=== PATIENT | male | born 1995 | race Caucasian/White ===

== ENCOUNTER → 2022-08-06 | Outpatient (CLI) | payer OTHER, SELFPAY ==
--- NOTE | 2022-08-06 13:36 | RAD_ITS ---
EXAM: XR LEFT TIBIA AND FIBULA, 2 VIEWS CLINICAL INDICATION: Trauma TECHNIQUE: Frontal and lateral views of the left tibia and fibula. This report was created using [employer] report generation technology. COMPARISON: None. FINDINGS: BONES/JOINTS: No acute abnormality. SOFT TISSUES: Normal. No soft tissue swelling or gas. No radiopaque foreign body. RAD/Tibia & Fibula 2 Views IMPRESSION: Negative left tibia and fibula x-rays. Electronically Signed: James Valentin MD at 16:40 EST ,
--- NOTE | 2022-08-06 13:37 | RAD_ITS ---
EXAM: XR BILATERAL RIBS AND AP CHEST, 3 OR MORE VIEWS CLINICAL INDICATION: Trauma TECHNIQUE: Frontal and oblique views of the bilateral ribs and frontal view of the chest. This report was created using [employer] report generation technology. COMPARISON: None. FINDINGS: LUNGS AND PLEURAL SPACES: Normal. No consolidation or edema. No pneumothorax. No effusion. HEART: Normal. Normal heart size. MEDIASTINUM: No mediastinal or hilar mass. BONES/JOINTS: No acute abnormality. RAD/Ribs Abdulkadir Min 4V w/PA Chest IMPRESSION: Normal chest and bilateral ribs series. Electronically Signed: James Valentin MD at 16:35 EST ,
--- NOTE | 2022-08-06 13:45 | RAD_ITS ---
EXAM: XR RIGHT TIBIA AND FIBULA, 2 VIEWS CLINICAL INDICATION: Trauma TECHNIQUE: Frontal and lateral views of the right tibia and fibula. This report was created using [employer] report generation technology. COMPARISON: None. FINDINGS: BONES/JOINTS: No acute abnormality. SOFT TISSUES: Normal. No soft tissue swelling or gas. No radiopaque foreign body. RAD/Tibia & Fibula 2 Views IMPRESSION: Intact right tibia and fibula. Electronically Signed: James Valentin MD at 16:41 EST ,
== END | disposition home or self-care (01) ==
DX: S82.401A Unspecified fracture of shaft of right fibula, initial encounter for closed fracture (principal); S82.402A Unspecified fracture of shaft of left fibula, initial encounter for closed fracture; S82.201A Unspecified fracture of shaft of right tibia, initial encounter for closed fracture; S82.202A Unspecified fracture of shaft of left tibia, initial encounter for closed fracture; S22.49XS Multiple fractures of ribs, unspecified side, sequela
CPT/HCPCS: 71111; 73590

== ENCOUNTER → 2022-10-08 | Outpatient (CLI) | payer OTHER, SELFPAY ==
--- NOTE | 2022-10-08 08:22 | RAD_ITS ---
INDICATION: OSTEOARTHRITIS EXAMINATION/TECHNIQUE: X-RAY - XR Spine Thoracic 2 Views COMPARISON: FINDINGS: VERTEBRAE: Preserved vertebral body height. No fracture. No spondylolisthesis. Preservation of the normal thoracic kyphosis. No significant facet arthropathy. DISCS: Disc spaces are maintained. INCLUDED CHEST/ABDOMEN: No acute abnormalities. RAD/Thoracic Spine 3 Views IMPRESSION: No evidence of thoracic spinal fracture or spondylolisthesis. Electronically Signed: Ramirez Wilder MD at 17:18 EST ,
--- NOTE | 2022-10-08 08:22 | RAD_ITS ---
INDICATION: OSTEOARTHRITIS EXAMINATION/TECHNIQUE: X-RAY - XR Spine Lumbar 2 or 3 Views COMPARISON: None. FINDINGS: VERTEBRAE: Preserved vertebral body height. No fracture. No spondylolisthesis. Preservation of the normal lumbar lordosis. No significant facet arthropathy. DISCS: Disc spaces are maintained. INCLUDED ABDOMEN: Included bowel gas pattern is non-obstructive. RAD/Lumbar Spine 2 or 3 Views IMPRESSION: No evidence of lumbar spinal fracture or spondylolisthesis. Electronically Signed: Ramirez Wilder MD at 17:17 EST ,
== END | disposition home or self-care (01) ==
DX: M19.90 Unspecified osteoarthritis, unspecified site (principal)
CPT/HCPCS: 72072; 72100